=== PATIENT | female | born 1950 | race Caucasian/White ===

== ENCOUNTER 2017-06-20 14:46 | Emergency (ER) | payer MEDICARE, OTHER ==
[~2017-06-20] VITALS: Ht 165.1 cm; Wt 77.3 kg
[~2017-06-20 14:46] MED LIST: CELE100 PO; FLUO40CA12 PO; GABA100C PO; HYDR1TAB91 PO; MOD100 PO; MULT1TAB34 PO; OMEG1CAP43 PO; PRI20 PO; TIZA4CAP PO; TOLT4CAP PO; WEL100 PO; [UNRECOGNIZED DRUG - CODE] PO; [UNRECOGNIZED DRUG - CODE] PO; albuterol IH; lipitor; methadone PO
[2017-06-20 14:56] VITALS: BP 144/78; PULSE 95; RESP 20; O2SAT 97
--- NOTE | 2017-06-20 15:22 | ED.REPORT ---
HPI-Abd Pain M 40 and Over Date of Service Jun 20, 2017 ED Provider: Linda Akhtar MD Pt is a 67 year old female with a hx of asthma, diverticulitis and hyperlipidemia presenting to the ED complaining of intermittent RUQ abdominal pain onset a few days ago, worsened last night at 0100. She states that she has had a cough for about 2 weeks, constipation since yesterday, nausea, decreased appetite, and decreased urination (because she hasn't been eating or drinking). Denies vomiting, diarrhea, fever, chills, or back pain. The abdominal pain is exacerbated by movement. Nursing Notes Stated Complaint: PAIN RIGHT UPPER QUAD ABDOMEN Chief Complaint: Female Abdominal Pain Nursing Notes Reviewed: Yes Allergies: Coded Allergies: erythromycin ethylsuccinate (Verified Adverse Reaction, Severe, N/V, ) Uncoded Allergies: Hydrocodone (Allergy, Severe, 03/30/05) Erythromycin (Adverse Reaction, Severe, N/V, 03/30/05) Scheduled ([albuterol]) IH PRN ([methadone]) PO QID Bupropion-Expunged Drug, Do Not Renew! (Bupropion-Expunged Drug, Do Not Renew!) 100 Mg Tablet 150 MG PO DAILY Hua Carb/Vitamin D3-Expunged, Do Not Renew! (Calcium + D 600 Mg-Expunged, Do Not Renew!) 1 Tab Tablet 1 TAB PO DAILY Celecoxib-Expunged Drug, Do Not Renew! (Celecoxib-Expunged Drug, Do Not Renew!) 100 Mg Capsule 100 MG PO PRN FLUoxetine-Expunged Drug, Do not Renew! (Prozac-Expunged Drug, Do not Renew!) 40 Mg Capsule 60 MG PO DAILY Gabapentin-Expunged Drug, Do Not Renew! (Neurontin-Expunged Drug, Do Not Renew! ) 100 Mg Capsule 100 MG PO BID 1 cap PM 1 cap HS Hydrocod/APAP-Expunged, Do Not Renew! (Hydrocod/APAP-Expunged, Do Not Renew!) 1 Each Tablet 1 TAB PO PRN Modafinil-Expunged Drug, Do Not Renew! (Provigil-Expunged Drug, Do Not Renew!) 100 Mg Tablet 100 MG PO DAILY Multivitamins W-Minerals (One Tablet Daily W/Minerals) 1 Tab Tablet 1 TAB PO DAILY [place]-3 Fatty Acids/Fish Oil (Pv Fish Oil 1,000 Mg Softgel) 1 Cap Capsule 1 CAP PO BID Omeprazole-Expunged Drug, Do Not Renew! (Omeprazole-Expunged Drug, Do Not Renew! ) 20 Mg Capcr 20 MG PO DAILY Tizanidine Hcl (Zanaflex) 4 Mg Capsule 4 MG PO DAILY Tolterodine-Expunged Drug, Do Not Renew! (Tolterodine LA-Expunged Drug, Do Not Renew!) 4 Mg Cap.sr.24h 4 MG PO PRN Triamterene/HCTZ-Expunged Drug, Do Not Renew! ([id number]-12-Bgqdjzvo Drug, Do Not Renew!) 1 Ea Cap 1 EA PO DAILY Scheduled PRN Hydrocodone-Acetaminophen 5-325 mg (Hydrocodone-Acetaminophen 5-325 mg) 1 Each Tablet 1 TABLET PO Q4H PRN PRN For Pain Miscellaneous Medications ([lipitor]) General Time Seen by MD: 15:01 Chief Complaint Abdominal pain Hx Obtained From: Patient Arrived By: Walk-in Sudden in Onset?: Yes Onset Occurred: 13 - 16 hours ago Symptom Duration: Intermittent Progression since Onset: Constant Location: : RUQ Quality: Painful Severity: Current: Severe Severity: Maximum: Severe Exacerbated by: Movement Recent Healthcare: No recent doctor visit, No recent hospitalization Similar Sx Previous: No Past Medical History Past Medical History Fibromyalgia Hyperlipidemia Arthritis Diverticulitis Hiatal hernia Heartburn Depression 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 Asthma Benign thyroid nodule with goiter Denies: Coronary artery disease Past Surgical History Left and right rotator cuff repair Partial colonectomy Partial pancreatectomy and splenectomy Total hysterectomy/oophorectomy and removal of fallopian tubes Bilateral foot and knee surgeries Denies: Cholecystectomy Smoking History Unknown if Ever Smoker Ambulatory Status Independent Review of Systems Reports: Decreased appetite Constitutional: Denies: Chills, Fever Respiratory: Reports: Non-productive cough GI: Reports: Abdominal pain, Constipation, Nausea, Denies: Diarrhea, Vomiting Male: Reports Urination decreased Musculoskeletal: Denies: Back pain Complete sys rev & neg: except as marked. Physical Exam Initial Vital Signs Vital Signs (First) Date Time Temp Pulse Resp B/P Pulse Ox O2 Delivery O2 Flow Rate FiO2 06/20/17 14:56 37.1 95 20 144/78 97 Room Air Initial VS: Reviewed Head / Eyes: Atraumatic, Normocephalic, PERRL ENT: Mucous membranes moist, Conjunctiva normal, No scleral icterus Extremities: Vascular intact, Neuro intact, No swelling, No tenderness Skin: Warm, Dry, No cyanosis Neurologic: Alert, Oriented, Nonfocal Psychiatric: Mood/affect normal, Behavior normal, Normal thought content General/Constitutional: Awake, Alert, No acute distress Respiratory / Chest: Atraumatic, Breath sounds NL, Breath sounds = bilat Cardiovascular: Heart rate NL, Regular rhythm, Heart sounds NL, No gallop, No murmurs, No rubs Abdomen: Atraumatic Extensive midline scar. RUQ tenderness with guarding, and mild RLQ tenderness Back: Atraumatic, Inspection NL, Full range of motion Interpretation & Diagnostics US ABDOMEN: IMPRESSION: 1. Dilatation of the extra hepatic bile duct to 12.4 mm. Distal bile duct stone and/or other pathology cannot be excluded. Correlation with LFTs and if indicated CT could be performed for further assessment. Dr. Akhtar given results and recommendations at 1645 hrs. 06/20/2017 Dictated by: Merritt Phillips [facility] Interpreted: Tacos Benavides MD on 06/20/2017 at 16 :51 Lab Results Interpretation Result Diagram: 06/20/17 1533 06/20/17 1533 Test 06/20/17 15:33 06/20/17 15:40 06/20/17 18:20 White Blood Count 16.5th/mm3 (3.8-10.1) Red Blood Count 4.08mil/mm3 (3.90-5.20) Hemoglobin 12.7g/dL (12.0-15.6) Hematocrit 37.3% (35.0-46.0) Mean Corpuscular Volume 91.4fL (81-100) Mean Corpuscular Hemoglobin 31.1pg (27.0-35.0) Mean Corpuscular Hemoglobin Concent 34.0% (32.0-37.0) Red Cell Distribution Width 14.3% (12.3-15.4) Platelet Count 410bil/L (150-400) Neutrophils (%) (Auto) 74.5% (40-74) Lymphocytes (%) (Auto) 14.1% (14-46) Monocytes (%) (Auto) 10.0% (4-12) Eosinophils (%) (Auto) 0.4% (0-5) Basophils (%) (Auto) 0.3% (0-3) Prothrombin Time 11.5sec (8.1-12.5) Prothromb Time International Ratio 1.07ratio Activated Partial Thromboplast Time 24.4sec (22.8-33.0) Sodium Level 134mEq/L (134-144) Potassium Level 4.0mEq/L (3.5-5.2) Chloride Level 96mEq/L (97-108) Carbon Dioxide Level 24mmol/L (18-29) Blood Urea Nitrogen 22mg/dL (8-27) Creatinine 0.81mg/dL (0.57-1.00) Estimat Glomerular Filtration Rate 100mL/min (>59) Glucose Level 119mg/dL (60-99) Calcium Level 9.7mg/dL (8.5-10.1) Magnesium Level 1.8mg/dL (1.6-2.6) Total Bilirubin 0.5mg/dL (0.0-1.2) Aspartate Amino Transf (AST/SGOT) 15U/L (0-50) Alanine Aminotransferase (ALT/SGPT) 10U/L (0-32) Alkaline Phosphatase 76U/L (25-165) Total Protein 7.2g/dL (6.4-8.4) Albumin 3.8g/dL (3.4-5.0) Lipase 14U/L (13-60) Hold Urine Received (Received) Urine Color Dark yellow (YELLOW) Urine Appearance Hazy (CLEAR,HAZY) Urine pH 5.0 (5.0-8.0) Urine Specific [place] 1.020 (1.003-1.035) Urine Protein 30mg/dL (NEG,TRACE) Urine Glucose (UA) Negativemg/dL (NEGATIVE) Urine Ketones Tracemg/dL (NEGATIVE) Urine Occult Blood Negative (NEGATIVE) Urine Nitrite Negative (NEGATIVE) Urine Bilirubin Negative (NEGATIVE) Urine Urobilinogen Normalmg/dL (NORMAL) Urine Leukocyte Esterase Negative (NEGATIVE) Urine RBC 0-2/hpf (0-2) Urine WBC 0-5/hpf (0-5) Urine Epithelial Cells Occasional/hpf (NONE-MOD) Urine Crystals Oxalic acid crystals (NONE Urine Bacteria Few/hpf (NONE-FEW) Urine Hyaline Casts None/lpf (NONE) Urine Granular Casts None seen (NONE SEEN) Urine Waxy Casts None seen (NONE SEEN) Urine Red Blood Cell Casts None seen (NONE SEEN) Urine White Blood Cell Casts None seen (NONE SEEN) Urine Mucus Present (None Seen) Urine Trichomonas None seen (NONE SEEN) Urine Yeast None (NONE SEEN) Urinalysis Comment None Urine Culture Reflexed Not indicated ECG Interpretation Time: 15:14 Interpreted by: ED physician Normal ECG Interpretation: Normal ECG w/ rate of... (89), Normal rate, Normal sinus rhythm CT Abd / Pelvis Interpretation IMPRESSION: 1. There is a rectus sheath hematoma on the right approximately 13 cm in length and up to 2.4 cm in thickness and 6.3 cm in transverse dimension. 2. Previous splenectomy and pancreatic tail ectomy in the remote past.. Dictated by: Sheldon Raymundo M.D. on 06/20/2017 at 17:35 findings were discussed with Dr. Akhtar. Study type: Abdominal CT IV contrast Interpretation / Wet Read by: Interpret - Radiologist, Discussed w radiologist Re-Eval/Medical Decision Med Decision/Clinical Course 67-year-old female presents to the emergency department with acute right-sided abdominal pain with right upper quadrant and right lower quadrant tenderness. Ultrasound of her gallbladder revealed focal dilatation of the common bile duct, however normal LFTs and bilirubin. A CT was obtained given her degree of pain and tenderness. Her symptoms were caused by a rectus sheath hematoma, this may be from significant cough and she has had. She had an elevation of white blood cell count however on further questioning patient has been on prednisone for the past few days as well as doxycycline for an upper respiratory illness. Her pulmonary exam was normal, and she has had improvement of her symptoms, is afebrile I do not suspect that she has pneumonia. She will follow up with her primary care doctor. Time of Eval: 16:39 Patient Status: Condition improved Re-Evaluation/Progress Note: Still has significant RUQ tenderness with report of negative sonographic Duong's sign by US tech. Time of Eval: 18:21 Patient Status: Condition improved Re-Evaluation/Progress Note: Explained CT findings. She is on day 3 of a prednisone burst which likely accounts for her white blood cell count. She has had significant coughing but is getting better which may be the cause for her rectus hematoma. Counseled Regarding: Diagnosis, Lab results, Need for follow-up, When/why to return to ED Discharge & Departure Primary Impression: Rectus sheath hematoma Encounter type: initial encounter Qualified Code: S30.1XXA - Contusion of abdominal wall, initial encounter Disposition: Home Vital Signs - All Vital Signs Date Time Temp Pulse Resp B/P Pulse Ox O2 Delivery O2 Flow Rate FiO2 06/20/17 18:50 96 20 144/59 96 Room Air 06/20/17 14:56 37.1 95 20 144/78 97 Room Air )( All Prior VS Reviewed: Yes Condition: Improved Patient Instructions: Abdominal Pain (ED) Additional Instructions: Thank you for entrusting us with your care today. Your lab work, CT and ultrasound today were all reassuring. You symptoms are being caused by bleeding in one of your abdominal muscles. Take the hydrocodone you were prescribed. Continue taking your prednisone until your respiratory symptoms resolve. Follow up with your primary care provider in the next few days. Return to the ER if you develop any new or worsening symptoms such as vomiting, fever, trouble breathing, diarrhea, headache, numbness, weakness, or increased pain. Referrals: Anum Torres (PCP) Scribe Attestation Portions of this note were transcribed by Greta Reza. I, Dr. Akhtar, personally performed the history, physical exam and medical decision-making; I reviewed and confirmed the accuracy of the information in the transcribed note. Signed by: Jumana Gamboa, 06/20/17. copies to: Anum Torres Sarah C MD Jun 20, 2017 15:22 GRETA REZA Jun 20, 2017 15:40
[2017-06-20] MEDS ORDERED: Ondansetron 2 mg/mL 2 mL Inj IVPUSH ONE (15:25)
[2017-06-20 15:37] LABS: BASOPHILS % (AUTO) 0.3 % (0-3); EOSINOPHILS % (AUTO) 0.4 % (0-5); Mean Corpuscular Hemoglobin 31.1 pg (27.0-35.0); Mean Corpuscular Volume 91.4 fL (81-100); NEUTROPHILS % (AUTO) 74.5 % (40-74); Platelet Count 410 bil/L (150-400)
[2017-06-20] MEDS ORDERED: 0.9% Sodium Chloride 1,000 ML IV ONE (15:45)
[2017-06-20 15:57] LABS: Magnesium 1.8 mg/dL (1.6-2.6)
--- NOTE | 2017-06-20 17:04 | DRSVH ---
PROCEDURE: US ABDOMEN INDICATIONS: gallbladder, RUQ pain TECHNIQUE: Real-time scanning was performed of the abdominal and retroperitoneal organs, with image documentatio n. COMPARISON: [facility], US, CAROTID DUPLEX DOPPLER BILAT, 08/17/2013, 14:59. FINDINGS: Liver length: 13.55 cm Gallbladder Wall Thickness: 2.50 mm CHD: 4.30 mm CBD: 1.24 cm Right kidney length: 10.83 cm Left kidney length: 9.12 cm Aorta(Proximal): 2.26 cm Aorta(Mid): 1.65 cm Liver: Liver is normal in size and homogeneous in echotexture. Gallbladder: No gallstones identified. Normal gallbladder wall. No pericholecystic fluid. Negativ e sonographic Duong sign. Biliary ducts: Intrahepatic bile ducts are non-dilated. Extrahepatic bile duct caliber is dilated t o 12.4 mm. Pancreas: Suboptimally visualized. Spleen: Spleen is surgically absent. Kidneys: Kidneys are normal in size and echotexture. No hydronephrosis or nephrolithiasis. No rosalia d masses. Aorta: Visualized aorta is normal in caliber at less than 3 cm. Iliacs: Proximal common iliac arteries are normal in caliber at less than 2.5 cm. IVC: Intrahepatic inferior vena cava is patent. Miscellaneous: No free abdominal fluid. IMPRESSION: 1. Dilatation of the extra hepatic bile duct to 12.4 mm. Distal bile duct stone and/or other patholo gy cannot be excluded. Correlation with LFTs and if indicated CT could be performed for further asse ssment. Dr. Akhtar given results and recommendations at 1645 hrs. 06/20/2017 Dictated by: Merritt Phillips [facility] Interpreted: Tacos Benavides MD on 06/20/2017 at 16:51 Approved by: Tacos Benavides M.D. on 06/20/2017 at 17:02
--- NOTE | 2017-06-20 17:47 | DRSVH ---
PROCEDURE: CT ABDOMEN AND PELVIS WITH CONTRAST ([id number]) INDICATIONS: RUQ and RLQ pain and TTP TECHNIQUE: After the administration of intravenous contrast, 5 mm thick sections acquired from the diaphragm to the symphysis. 5 mm coronal and sagittal reformats were acquired. For radiation dose reduction, the following was used: automated exposure control, adjustment of mA and/or kV according to patient claritza whitaker. COMPARISON: [facility], CT, KUB - CT ([facility]), 10/19/2014, 12:59. FINDINGS: Image quality: Excellent. ABDOMEN: Lung bases: Lung bases are clear. Heart size is normal. Solid organs: Liver is normal in size and enhancement. The spleen has been removed. Gallbladder is w ithin normal limits. Biliary system is approximately 7 mm in extrahepatic area. In series 2 image 24 there is a small calcification that is thought to have been present on series 2 image 21 of the prev ious study in October of 2014. This is thought to be just next to and posterior to the common bile du ct and not within it. Pancreas shows some vascular clips at the body tail junction suggesting partial pancreatectomy. No adrenal nodules. Kidneys demonstrate normal size and enhancement, without hydron ephrosis. Peritoneum and bowel: Bowel loops demonstrate normal wall thickness and caliber. No free fluid or a ir. Nodes and vessels: No retroperitoneal or mesenteric adenopathy by size criteria. Aorta and inferior vena cava are normal in size. Miscellaneous: No ventral hernias. PELVIS: Genitourinary: Bladder wall thickness is normal. Uterus and ovaries are not identified. Presumably they have been removed. Miscellaneous: No inguinal hernias or adenopathy. Bones: No suspicious bony lesions. No vertebral body compression fractures. IMPRESSION: 1. There is a rectus sheath hematoma on the right approximately 13 cm in length and up to 2.4 cm in t hickness and 6.3 cm in transverse dimension. 2. Previous splenectomy and pancreatic tail ectomy in the remote past.. Dictated by: Sheldon Raymundo M.D. on 06/20/2017 at 17:35 findings were discussed with Dr. Akhtar. Approved by: Sheldon Raymundo M.D. on 06/20/2017 at 17:45
[2017-06-20 18:28] LABS: INR 1.07 ratio
[2017-06-20] MEDS ORDERED: HYDR-4003 PO (18:35)
[2017-06-20 18:50] VITALS: BP 144/59; PULSE 96; RESP 20; O2SAT 96
[2017-06-20 18:52] LABS: APPEARANCE,URINE HAZY (CLEAR,HAZY); COLOR,URINE DARK YELLOW (YELLOW); OCCULT BLOOD,URINE NEGATIVE (NEGATIVE); UROBILINOGEN,URINE NORMAL (NORMAL)
== END 2017-06-20 18:57 | disposition home or self-care (01) ==
LOC: SED 14:46
DX: S30.1XXA Contusion of abdominal wall, initial encounter (principal); X58.XXXA Exposure to other specified factors, initial encounter; Y92.89 Other specified places as the place of occurrence of the external cause; Y93.89 Activity, other specified; Y99.8 Other external cause status; K59.00 Constipation, unspecified; R05 Cough; E78.5 Hyperlipidemia, unspecified; F32.9 Major depressive disorder, single episode, unspecified; J45.909 Unspecified asthma, uncomplicated; M79.7 Fibromyalgia; Z90.710 Acquired absence of both cervix and uterus; Z90.49 Acquired absence of other specified parts of digestive tract; Z88.1 Allergy status to other antibiotic agents
CPT/HCPCS: 36415; 74177; 76700; 80053; 81000; 83690; 83735; 85025; 85610; 85730; 93005; 96361; 96374; 96375; 99285; J2270; J2405; J7030; Q9967

== ENCOUNTER 2017-06-26 18:20 | Emergency (ER) | payer MEDICARE, OTHER ==
[~2017-06-26] VITALS: Ht 165.1 cm; Wt 77.0 kg
[~2017-06-26 18:20] MED LIST changes: +HYDR-4003 PO
[2017-06-26 18:33] VITALS: BP 135/78; PULSE 75; RESP 18; O2SAT 99
[2017-06-26 19:09] LABS: BASOPHILS % (AUTO) 0.5 % (0-3); EOSINOPHILS % (AUTO) 2.3 % (0-5); MONOCYTES % (AUTO) 10.4 % (4-12); Mean Corpuscular Hemoglobin 30.7 pg (27.0-35.0); Mean Corpuscular Volume 91.8 fL (81-100); NEUTROPHILS % (AUTO) 63.1 % (40-74); Platelet Count 449 bil/L (150-400)
--- NOTE | 2017-06-26 19:26 | ED.REPORT ---
HPI-Abd Pain F 40 and Over Date of Service Jun 26, 2017 ED Provider: Kenny Dumont MD The pt is a 67 y/o female with a hx of asthma, diverticulitis and hyperlipidemia who presents to the ED complaining of ecchymosis around the abdominal midline that she noticed today. She was seen at the ED 6 days ago for abdominal pain, at which time her abdominal CT showed a rectus sheath hematoma. The pt felt better after discharge but the pain returned 5 days ago. Associated sx include generalized weakness. She denies lightheadedness, melena, hematemesis , and hematochezia. She is not on any blood thinners. Nursing Notes Stated Complaint: ABDOMINAL PAIN AND BRUISING Chief Complaint: General Complaint Nursing Notes Reviewed: Yes Allergies: Coded Allergies: erythromycin ethylsuccinate (Verified Adverse Reaction, Severe, N/V, ) Uncoded Allergies: Erythromycin (Adverse Reaction, Severe, N/V, 03/30/05) Scheduled ([albuterol]) IH PRN ([methadone]) PO QID Bupropion-Expunged Drug, Do Not Renew! (Bupropion-Expunged Drug, Do Not Renew!) 100 Mg Tablet 150 MG PO DAILY Hua Carb/Vitamin D3-Expunged, Do Not Renew! (Calcium + D 600 Mg-Expunged, Do Not Renew!) 1 Tab Tablet 1 TAB PO DAILY Celecoxib-Expunged Drug, Do Not Renew! (Celecoxib-Expunged Drug, Do Not Renew!) 100 Mg Capsule 100 MG PO PRN FLUoxetine-Expunged Drug, Do not Renew! (Prozac-Expunged Drug, Do not Renew!) 40 Mg Capsule 60 MG PO DAILY Gabapentin-Expunged Drug, Do Not Renew! (Neurontin-Expunged Drug, Do Not Renew! ) 100 Mg Capsule 100 MG PO BID 1 cap PM 1 cap HS Hydrocod/APAP-Expunged, Do Not Renew! (Hydrocod/APAP-Expunged, Do Not Renew!) 1 Each Tablet 1 TAB PO PRN Modafinil-Expunged Drug, Do Not Renew! (Provigil-Expunged Drug, Do Not Renew!) 100 Mg Tablet 100 MG PO DAILY Multivitamins W-Minerals (One Tablet Daily W/Minerals) 1 Tab Tablet 1 TAB PO DAILY [place]-3 Fatty Acids/Fish Oil (Pv Fish Oil 1,000 Mg Softgel) 1 Cap Capsule 1 CAP PO BID Omeprazole-Expunged Drug, Do Not Renew! (Omeprazole-Expunged Drug, Do Not Renew! ) 20 Mg Capcr 20 MG PO DAILY Tizanidine Hcl (Zanaflex) 4 Mg Capsule 4 MG PO DAILY Tolterodine-Expunged Drug, Do Not Renew! (Tolterodine [place]-Expunged Drug, Do Not Renew!) 4 Mg Cap.sr.24h 4 MG PO PRN Triamterene/HCTZ-Expunged Drug, Do Not Renew! ([id number]-39-[place] Drug, Do Not Renew!) 1 Ea Cap 1 EA PO DAILY Scheduled PRN Hydrocodone-Acetaminophen 5-325 mg (Hydrocodone-Acetaminophen 5-325 mg) 1 Each Tablet 1 TABLET PO Q4H PRN PRN For Pain Hydrocodone-Acetaminophen 5-325 mg (Hydrocodone-Acetaminophen 5-325 mg) 1 Each Tablet 1 TABLET PO Q4H PRN PRN For Pain Miscellaneous Medications ([lipitor]) General Time Seen by MD: 19:29 Chief Complaint Other (abdominal ecchymosis) Hx Obtained From: Patient Arrived By: Walk-in Sudden in Onset?: Yes Onset Occurred: 1 - 4 hours ago Symptom Duration: Since onset Location: : RUQ Quality: Painful Radiation: : Does not radiate Severity: Current: Mild Severity: Maximum: Moderate Recent Healthcare: Recent doctor visit Similar Sx Previous: No Past Medical History Past Medical History Fibromyalgia Hyperlipidemia Arthritis Diverticulitis Hiatal hernia Heartburn Depression 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 Skin: Reports Bruising (abdominal) Neurologic: Denies: Lightheaded Physical Exam Vital Signs Vital Signs (First) Date Time Temp Pulse Resp B/P Pulse Ox O2 Delivery O2 Flow Rate FiO2 06/26/17 18:33 37.0 75 18 135/78 99 Room Air Initial VS: Reviewed Head / Eyes: Atraumatic, Normocephalic Neck: Supple, Non-tender, Full range of motion Extremities: Vascular intact, Neuro intact, No swelling, No tenderness Skin: Warm, Dry, No cyanosis Neurologic: Alert, Oriented, Nonfocal General/Constitutional: Awake, Alert, No acute distress, Well appearing, Cooperative Respiratory / Chest: Atraumatic, Breath sounds NL, Breath sounds = bilat, No respiratory distress, No rales, No rhonchi, No wheezing Cardiovascular: Heart rate NL, Regular rhythm, Heart sounds NL, No gallop, No murmurs, No rubs Abdomen: Atraumatic, Soft, No guarding, No rebound, BS normoactive Midline surgical abdominal scar. Ecchymosis around the scar down to the pubis. Back: Atraumatic, Full range of motion, Painless range of motion, Non-tender Interpretation & Diagnostics Lab Results Interpretation Result Diagram: 06/26/17 1900 06/26/17 1900 Test 06/26/17 19:00 06/26/17 19:14 06/26/17 19:16 White Blood Count 9.6th/mm3 (3.8-10.1) Red Blood Count 3.88mil/mm3 (3.90-5.20) Hemoglobin 11.9g/dL (12.0-15.6) Hematocrit 35.6% (35.0-46.0) Mean Corpuscular Volume 91.8fL (81-100) Mean Corpuscular Hemoglobin 30.7pg (27.0-35.0) Mean Corpuscular Hemoglobin Concent 33.4% (32.0-37.0) Red Cell Distribution Width 14.8% (12.3-15.4) Platelet Count 449bil/L (150-400) Neutrophils (%) (Auto) 63.1% (40-74) Lymphocytes (%) (Auto) 23.1% (14-46) Monocytes (%) (Auto) 10.4% (4-12) Eosinophils (%) (Auto) 2.3% (0-5) Basophils (%) (Auto) 0.5% (0-3) Sodium Level 137mEq/L (134-144) Potassium Level 4.1mEq/L (3.5-5.2) Chloride Level 102mEq/L (97-108) Carbon Dioxide Level 23mmol/L (18-29) Blood Urea Nitrogen 21mg/dL (8-27) Creatinine 0.56mg/dL (0.57-1.00) Estimat Glomerular Filtration Rate 154mL/min (>59) Glucose Level 85mg/dL (60-99) Calcium Level 8.8mg/dL (8.5-10.1) Magnesium Level 1.9mg/dL (1.6-2.6) Total Bilirubin 0.4mg/dL (0.0-1.2) Aspartate Amino Transf (AST/SGOT) 13U/L (0-50) Alanine Aminotransferase (ALT/SGPT) 9U/L (0-32) Alkaline Phosphatase 73U/L (25-165) Total Protein 6.9g/dL (6.4-8.4) Albumin 3.5g/dL (3.4-5.0) Lipase 12U/L (13-60) Hold [place] Top Tube Received (Received) Hold Urine Received (Received) Urine Color Yellow (YELLOW) Urine Appearance Clear (CLEAR,HAZY) Urine pH 5.5 (5.0-8.0) Urine Specific [place] 1.030 (1.003-1.035) Urine Protein Negativemg/dL (NEG,TRACE) Urine Glucose (UA) Negativemg/dL (NEGATIVE) Urine Ketones Tracemg/dL (NEGATIVE) Urine Occult Blood Negative (NEGATIVE) Urine Nitrite Negative (NEGATIVE) Urine Bilirubin Negative (NEGATIVE) Urine Urobilinogen 1.0mg/dL (NORMAL) Urine Leukocyte Esterase Negative (NEGATIVE) Urine RBC 0-2/hpf (0-2) Urine WBC 0-5/hpf (0-5) Urine Epithelial Cells Few/hpf (NONE-MOD) Urine Crystals None seen (NONE SEEN) Urine Bacteria Few/hpf (NONE-FEW) Urine Hyaline Casts None/lpf (NONE) Urine Granular Casts None seen (NONE SEEN) Urine Waxy Casts None seen (NONE SEEN) Urine Red Blood Cell Casts None seen (NONE SEEN) Urine White Blood Cell Casts None seen (NONE SEEN) Urine Mucus None seen (None Seen) Urine Trichomonas None seen (NONE SEEN) Urine Yeast None (NONE SEEN) Urinalysis Comment None Urine Culture Reflexed Not indicated Re-Eval/Medical Decision Re-Evaluation/Progress : Time of Eval: 20:07 Re-Evaluation/Progress Note: Rechecked pt. Discussed lab results, diagnosis and plan to discharge. Pt understands and agrees with the plan. F/U instruction and RTER warning given. All questions addressed. Consultation : Referral / Consult Name: Kiersten Quan MD Consulted With: Surgeon Call Returned at: 19:53 Note: Dr. Quan agrees the bruising is not concerning and is to be expected. Counseled Regarding: Diagnosis, Lab results, Need for follow-up, When/why to return to ED Discharge & Departure Primary Impression: Rectus sheath hematoma Encounter type: subsequent encounter Qualified Code: S30.1XXD - Contusion of abdominal wall, subsequent encounter Disposition: Home Discharge Condition All VS Reviewed: Yes Condition: Stable Additional Instructions: Emergency department evaluation today included interview, examination, labs and review of recent records. Case was discussed with a general surgeon. The bruising you note is from the known hematoma in your abdominal wall. this should resolve with time, it will take weeks. Pain should be improving soon, may use hydrocodone as needed. We wrote for an additional 30. Return to ED for vomiting, feeling weak, chest pain or shortness of breath. Referrals: Leila Velarde (PCP) Scribe Attestation Portions of this note were transcribed by Johann Rasmussen. I,, personally performed the history,physical exam and medical decision-making;I reviewed and confirmed the accuracy of the information in the transcribed note. Signed by Jumana Salazar. 06/26/17 copies to: Leila Velarde Donald L MD Jun 26, 2017 19:26 Johann Rasmussen Jun 26, 2017 19:39
[2017-06-26 19:31] LABS: Magnesium 1.9 mg/dL (1.6-2.6)
[2017-06-26 19:33] LABS: APPEARANCE,URINE CLEAR (CLEAR,HAZY); COLOR,URINE YELLOW (YELLOW); OCCULT BLOOD,URINE NEGATIVE (NEGATIVE); PH,URINE 5.5 (5.0-8.0)
[2017-06-26] MEDS ORDERED: HYDR-4003 PO (20:06)
[2017-06-26 20:27] VITALS: BP 142/60; PULSE 75; RESP 20; O2SAT 98
== END 2017-06-26 20:28 | disposition home or self-care (01) ==
LOC: SED 18:20
DX: S30.1XXD Contusion of abdominal wall, subsequent encounter (principal); X58.XXXD Exposure to other specified factors, subsequent encounter; Y93.89 Activity, other specified; Y92.9 Unspecified place or not applicable; Y99.8 Other external cause status; M79.7 Fibromyalgia; E78.5 Hyperlipidemia, unspecified; F32.9 Major depressive disorder, single episode, unspecified; J45.909 Unspecified asthma, uncomplicated; Z88.1 Allergy status to other antibiotic agents